=== PATIENT | female | born 1970 | race African-American/Black ===

== ENCOUNTER 2022-12-31 08:11 | Day surgery (SDC) | payer MEDICAID ==
[~2022-12-31 08:11] MED LIST: Midazolam 1 MG/ML 2 ML SDV ONE; Propofol 200 MG/20 ML SDV ONE; fentaNYL 50 MCG/ML SDV ONE
[2022-12-31] MEDS ORDERED: Dextrose 5%-Lactated Ringers 1,000 ML IV SCH (08:15)
[2022-12-31] MEDS ORDERED: Midazolam 1 MG/ML 2 ML SDV ONE (09:53)
[2022-12-31] MEDS ORDERED: fentaNYL 50 MCG/ML SDV ONE (09:53)
[2022-12-31] MEDS ORDERED: Propofol 200 MG/20 ML SDV ONE ×2 (09:53→10:21)
== END 2022-12-31 12:30 | disposition home or self-care (01) ==
LOC: JP.SDS 08:11
PROVIDERS: ATTEND Surgery
DX: Z12.11 Encounter for screening for malignant neoplasm of colon (principal); K64.9 Unspecified hemorrhoids
CPT/HCPCS: J2250; J2704; J3010; J7121